=== PATIENT | male | born 1990 | race Two or more races ===

== ENCOUNTER 2022-11-25 08:43 | Inpatient (IN) | payer OTHER ==
[~2022-11-25] VITALS: Ht 182.9 cm; Wt 97.3 kg
[2022-11-25 09:48] LABS: BASOPHILS % (AUTO) 0.3 % (0.0-2.0); EOSINOPHILS % (AUTO) 0.7 % (1.0-6.0); HEMATOCRIT 46.8 % (41-53); HEMOGLOBIN 15.9 g/dL (13.5-17.5); LYMPHOCYTES # (AUTO) 1.6 K/uL (1.0-4.8); LYMPHOCYTES % (AUTO) 16.6 % (22.0-44.0); MEAN CORPUSCULAR HEMOGLOBIN 29.4 pg (26.0-34.0); MEAN CORPUSCULAR HGB CONC 33.8 G/dL (31.0-37.0); MEAN CORPUSCULAR VOLUME 87 fL (80-100); MONOCYTES # (AUTO) 0.8 K/uL (0.1-1.0); MONOCYTES % (AUTO) 7.7 % (2.0-9.0); NEUTROPHILS # (AUTO) 7.4 K/uL (1.8-7.7); NEUTROPHILS % (AUTO) 74.7 % (40.0-70.0); PLATELET COUNT (AUTO) 221 K/uL (150-450); RED CELL DISTRIBUTION WIDTH 13.5 % (11.5-14.5); WHITE BLOOD COUNT (AUTO) 9.9 K/uL (4.5-11.0)
[2022-11-25 09:58] LABS: ANION GAP 8 mmol/L (8-16); CALCIUM, TOTAL 9.4 mg/dL (8.8-10.5); CARBON DIOXIDE 30 mmol/L (22-29); CHLORIDE 100 mmol/L (98-107); CREATININE 0.82 mg/dL (0.60-1.30); GLOMERULAR FILTR. RATE CALC > 60 mL/min (>60); GLUCOSE,RANDOM 110 mg/dL (70-110); POTASSIUM 4.7 mmol/L (3.5-5.1); SODIUM SERUM 138 mmol/L (136-145); UREA NITROGEN, BLOOD 13 mg/dL (7-18)
[2022-11-25] MEDS ORDERED: ONDANSETRON HCL 4 MG/2 ML VIAL IVP PRN (10:00)
[2022-11-25] MEDS ORDERED: ACETAMINOPHEN 325 MG TABLET PO PRN (10:00)
[2022-11-25 10:04] LABS: ALANINE AMINOTRANSFERASE 35 U/L (12-78); ALBUMIN 3.9 g/dL (3.4-5.0); ALKALINE PHOSPHATASE 84 U/L (46-116); ASPARTATE AMINOTRANSFERASE 23 U/L (15-37); BILIRUBIN,TOTAL 0.8 mg/dL (0.1-1.0); TOTAL PROTEIN, SERUM 7.4 g/dL (6.4-8.2)
[2022-11-25 10:06] LABS: COVID AG,FIA SOURCE NASAL SWAB
[2022-11-25 10:07] LABS: ALCOHOL, BLOOD (SERUM) < 3 mg/dL (0-10)
[2022-11-25 10:40] LABS: SARS-COV2 (COVID) ANTIGEN,FIA Negative (Negative)
[2022-11-25 10:59] VITALS: BP 135/71; PULSE 68; RESP 18; TEMP 97.8
[2022-11-25] MEDS ORDERED: METOCLOPRAMIDE HCL 5 MG/ML 2 ML VIAL IVP PRN (11:45)
[2022-11-25] MEDS ORDERED: DICYCLOMINE HCL 10 MG CAPSULE PO PRN (11:45)
[2022-11-25] MEDS ORDERED: LOPERAMIDE HCL 2 MG CAPSULE PO PRN (11:45)
[2022-11-25] MEDS ORDERED: SODIUM CHLORIDE 0.9% 1,000 ML IV ONE (11:45)
[2022-11-25 20:05] VITALS: BP 119/70; PULSE 79; RESP 19; TEMP 98.5
[2022-11-25] MEDS: TEMAZEPAM 15 MG CAPSULE PO SCH (20:11)
[2022-11-26] MEDS ORDERED: ACETAMINOPHEN 500 MG TABLET PO ONE (00:45)
[2022-11-26 02:15] LABS: PH,URINE DRUG SCREEN 5.5 (5.0-8.0)
[2022-11-26 02:22] LABS: ALCOHOL, URINE DRUG SCREEN NEGATIVE (NEGATIVE); AMPHET/METH SCREEN,URINE POSITIVE (NEGATIVE); BARBITURATE SCREEN, URINE NEGATIVE (NEGATIVE); BENZODIAZEPINES SCREEN,URINE NEGATIVE (NEGATIVE); CANNABINOID SCREEN,URINE POSITIVE (NEGATIVE); COCAINE SCREEN,URINE NEGATIVE (NEGATIVE); METHADONE SCREEN, URINE NEGATIVE (NEGATIVE); OPIATE SCREEN,URINE NEGATIVE (NEGATIVE); PHENCYCLIDINE SCREEN,URINE NEGATIVE (NEGATIVE)
[2022-11-26 04:50] VITALS: BP 130/64; PULSE 70; RESP 20; TEMP 98.1
[2022-11-26 08:19] VITALS: BP 123/82; PULSE 76; RESP 19; TEMP 98.2
[2022-11-26] MEDS: ACETAMINOPHEN 325 MG TABLET PO PRN (16:43)
[2022-11-26 20:00] VITALS: BP 118/67; PULSE 91; RESP 20; TEMP 98.1
[2022-11-26] MEDS: TEMAZEPAM 15 MG CAPSULE PO SCH (20:11)
[2022-11-27] MEDS: ACETAMINOPHEN 325 MG TABLET PO PRN (04:15)
[2022-11-27 04:20] VITALS: BP 118/76; PULSE 74; RESP 18; TEMP 97.6
[2022-11-27] MEDS: LORazepam 2 MG/ML VIAL IVP PRN (10:01)
[2022-11-27 10:16] VITALS: BP 132/71; PULSE 96; RESP 21; TEMP 98.1
[2022-11-27 19:55] VITALS: BP 94/64; PULSE 86; RESP 20; TEMP 98.4
[2022-11-27] MEDS: TEMAZEPAM 15 MG CAPSULE PO SCH (20:10)
[2022-11-28 04:20] VITALS: BP 112/70; PULSE 88; RESP 20; TEMP 98
[2022-11-28] MEDS: LORazepam 2 MG/ML VIAL IVP PRN (05:06)
[2022-11-28 07:58] VITALS: BP 130/81; PULSE 86; RESP 20; TEMP 98.7
[2022-11-28] MEDS: ACETAMINOPHEN 325 MG TABLET PO PRN (12:52)
[2022-11-28 15:32] VITALS: BP 126/82; PULSE 82; RESP 20; TEMP 98.5
[2022-11-28 15:37] VITALS: BP 132/84; PULSE 84; RESP 20; TEMP 98.4
[2022-11-28 19:50] VITALS: BP 100/62; PULSE 93; RESP 20; TEMP 98.6
[2022-11-28] MEDS ORDERED: INFLUENZA VIRUS VACCINE QVS 2023-24 (6MO+)/PF 60 MCG/0.5 ML SYRINGE IM. ONE (20:00)
[2022-11-28] MEDS: TEMAZEPAM 15 MG CAPSULE PO SCH (20:29)
[2022-11-29 04:25] VITALS: BP 97/56; PULSE 66; RESP 16; TEMP 98
[2022-11-29] MEDS ORDERED: HYDR10SY17 PO (06:23)
[2022-11-29] MEDS ORDERED: HYDR-4527 PO (06:25)
== END 2022-11-29 07:00 | DRG 897 ==
LOC: EMS 08:43 → 6S 09:55
PROVIDERS: ADMIT Internal Medicine; ATTEND Internal Medicine
DX: F11.90 Opioid use, unspecified, uncomplicated (principal); F10.10 Alcohol abuse, uncomplicated; F15.90 Other stimulant use, unspecified, uncomplicated; Z20.822 Contact with and (suspected) exposure to COVID-19; F41.9 Anxiety disorder, unspecified; Z87.891 Personal history of nicotine dependence
CPT/HCPCS: 80053; 80307; 85025; 99285; G0480; J2060; J7030